=== PATIENT | female | born 1995 | race Caucasian/White ===

== ENCOUNTER → 2024-02-03 09:45 | Outpatient (BNVA) | payer MEDICAID, SELFPAY | PROVIDERS: PCP Family Medicine; Visit Provider Internal Medicine Rheumatology | DX: M08.00 Unspecified juvenile rheumatoid arthritis of unspecified site (principal); Z34.92 Encounter for supervision of normal pregnancy, unspecified, second trimester; Z79.899 Other long term (current) drug therapy; Z3A.25 25 weeks gestation of pregnancy | CPT/HCPCS: 36415; 80076; 82565; 85025; 85651; 86140; 86160; 86162; 86200; 86235; 86255; 86376; 86431; 86480; 99204 ==